=== PATIENT | female | born 1945 | race Caucasian/White ===

== ENCOUNTER 2021-09-25 19:14 | Inpatient (IN) | payer MEDICARE ==
[~2021-09-25] VITALS: Ht 160 cm; Wt 63.0 kg
--- NOTE | 2021-09-25 03:30 | NUR ---
patient received from ER Alert to self able to verbalize needs, patient denies pain, vitals WNL, skin intact, piv on left AC clean and intact. patient repeatedly requesting to go home and gets out of bed without assistance. Bed alarm activated patient.
[~2021-09-25 19:14] MED LIST: FLAX SEED OIL; TYLENOL SINUS
[2021-09-25 19:38] LABS: BASOPHILS % (AUTO) 0.4 % (0-1); EOSINOPHILS # (AUTO) 0.1 X10'3 (0-0.9); EOSINOPHILS % (AUTO) 0.8 % (0-6); HEMATOCRIT 41.8 % (35.0-45.0); HEMOGLOBIN 14.2 g/dl (12.0-16.0); LYMPHOCYTES # (AUTO) 2.1 X10'3 (1.1-4.8); LYMPHOCYTES % (AUTO) 17.7 % (21-51); MEAN CORPUSCULAR HEMOGLOBIN 29.8 PG (27.0-31.0); MEAN CORPUSCULAR VOLUME 87.7 FL (78-98); MEAN PLATELET VOLUME 7.2 FL (7.4-10.4); MONOCYTES # (AUTO) 0.7 X10'3 (0-0.9); MONOCYTES % (AUTO) 5.5 % (2-12); NEUTROPHILS % (AUTO) 75.6 % (42-75); PLATELET COUNT 264 X10'3 (140-440); RED BLOOD COUNT 4.76 X10'6 (4.20-5.60); RED CELL DISTRIBUTION WIDTH 13.4 % (11.5-14.5); WHITE BLOOD COUNT 11.9 X10'3 (4.5-11.0)
[2021-09-25] MEDS ORDERED: ENAL10TA19 PO (19:39)
[2021-09-25] MEDS ORDERED: METO25TA6 PO (19:39)
[2021-09-25] MEDS ORDERED: CLOP75TA34 PO (19:39)
[2021-09-25] MEDS ORDERED: SOD1.479 (19:39)
[2021-09-25] MEDS ORDERED: SIMV-42 PO (19:39)
[2021-09-25 19:51] LABS: ALANINE AMINOTRANSFERASE 18 U/L (12-78); ALBUMIN 3.8 G/DL (3.4-5.0); ALBUMIN/GLOBULIN RATIO 1.1 (1.1-1.5); ALKALINE PHOSPHATASE 109 IU/L (46-116); ANION GAP 8 (8-16); ASPARTATE AMINO TRANSFERASE 14 U/L (10-37); BILIRUBIN,TOTAL 0.3 MG/DL (0.1-1.0); BLOOD UREA NITROGEN 14 MG/DL (7-18); BUN/CREATININE RATIO 15.4 (6.6-38.0); CALCIUM 8.5 MG/DL (8.5-10.1); CHLORIDE 98 MMOL/L (99-107); CREATININE 0.91 MG/DL (0.40-0.90); GLUCOSE 119 MG/DL (70-104); SODIUM 131 MMOL/L (135-145); TOTAL CARBON DIOXIDE 25.4 MMOL/L (24-32); TOTAL PROTEIN 7.4 G/DL (6.4-8.2); eGFR 60 ML/MIN
[2021-09-25] MEDS ORDERED: iohexol 350MG/ML 100ml bottle IV ONE (20:03)
[2021-09-25 20:59] LABS: CLARITY,URINE CLOUDY (Clear); COLOR,URINE YELLOW (Yellow); GLUCOSE, URINE NEGATIVE (Neg); KETONES,URINE 15 mg/dl (Neg); LEUKOCYTE ESTERASE ,URINE SMALL (Neg); NITRITES, URINE POSITIVE (Neg); OCCULT BLOOD,URINE NEGATIVE (Neg); PH,URINE 5.5 (4.8-8.0); PROTEIN,URINE NEGATIVE (Neg); UROBILINOGEN,URINE 0.2 E.U/dL (0.2-1.0)
[2021-09-25 21:01] LABS: UA COLLECTION TYPE NON-SPECIFIED
[2021-09-25 21:15] LABS: SQUAMOUS EPITHELIAL CELL,UR FEW /LPF (FEW)
[2021-09-25] MEDS ORDERED: CefTRIAXone 2gm/D5W 50ml BAG 50 ML IV ONE (21:15)
[2021-09-25 21:18] LABS: BACTERIA,URINE 4+ /HPF (Neg)
[2021-09-25 21:19] LABS: HYALINE CASTS 0-3 /LPF (NEGATIVE); RBC,URINE 0-2 /HPF (0-2); WBC,URINE 30-50 /HPF (0-4)
[2021-09-25] MEDS ORDERED: potassium CL 10mEq/100ml bag 100 ML IV PRN (21:20)
[2021-09-25] MEDS ORDERED: acetaminophen 325mg tablet PO PRN (21:20)
[2021-09-25] MEDS ORDERED: magnesium Cl slow-release 64mg tablet PO PRN (21:20)
[2021-09-25] MEDS ORDERED: magnesium 4gm in 100ml NS 100 ML IV PRN (21:20)
[2021-09-25] MEDS ORDERED: potassium Cl 20 mEq SR tablet PO PRN ×2 (21:20)
[2021-09-25] MEDS ORDERED: magnesium 2GM in 50ml NS 50 ML IV PRN (21:20)
[2021-09-25 21:54] LABS: MAGNESIUM 1.8 MG/DL (1.5-2.4)
[2021-09-25] MEDS: CefTRIAXone/D5W-Rocephin 1gm 50 ML IV SCH (22:58)
[2021-09-26 02:07] LABS: BASOPHILS % (AUTO) 0.4 % (0-1); EOSINOPHILS % (AUTO) 0.2 % (0-6); HEMATOCRIT 40.6 % (35.0-45.0); HEMOGLOBIN 13.8 g/dl (12.0-16.0); LYMPHOCYTES # (AUTO) 1.6 X10'3 (1.1-4.8); LYMPHOCYTES % (AUTO) 16.9 % (21-51); MEAN CORPUSCULAR HEMOGLOBIN 29.7 PG (27.0-31.0); MEAN CORPUSCULAR HGB CONC 33.9 g/dL (33.0-36.5); MEAN CORPUSCULAR VOLUME 87.6 FL (78-98); MEAN PLATELET VOLUME 7.7 FL (7.4-10.4); MONOCYTES # (AUTO) 0.5 X10'3 (0-0.9); NEUTROPHILS # (AUTO) 7.1 X10'3 (1.8-7.7); NEUTROPHILS % (AUTO) 77.5 % (42-75); PLATELET COUNT 261 X10'3 (140-440); RED BLOOD COUNT 4.63 X10'6 (4.20-5.60); RED CELL DISTRIBUTION WIDTH 13.3 % (11.5-14.5); WHITE BLOOD COUNT 9.2 X10'3 (4.5-11.0)
[2021-09-26 02:18] LABS: ALBUMIN 3.6 G/DL (3.4-5.0); ANION GAP 8 (8-16); BLOOD UREA NITROGEN 11 MG/DL (7-18); BUN/CREATININE RATIO 14.3 (6.6-38.0); CALCIUM 8.6 MG/DL (8.5-10.1); CHLORIDE 98 MMOL/L (99-107); CREATININE 0.77 MG/DL (0.40-0.90); GLUCOSE 129 MG/DL (70-104); MAGNESIUM 1.9 MG/DL (1.5-2.4); SODIUM 131 MMOL/L (135-145); TOTAL CARBON DIOXIDE 25.1 MMOL/L (24-32); eGFR 73 ML/MIN
[2021-09-26 03:16] VITALS: BP 126/68
[2021-09-26 06:00] VITALS: BP 122/58
--- NOTE | 2021-09-26 06:48 | NUR ---
Problems reprioritized. Patient report given, questions answered & plan of care reviewed with hung.
[2021-09-26] MEDS: CefTRIAXone/D5W-Rocephin 1gm 50 ML IV SCH (08:00)
[2021-09-26] MEDS: K and/or MAG REPLACEMENT MC SCH ×2 (08:00→20:00)
[2021-09-26] MEDS ORDERED: PERFLUTREN PROTEIN-A MICROSPHR (Optison) 0.22 MG/ML 3ML VIAL IV PRN (08:50)
[2021-09-26] MEDS: atorvastatin 10mg tablet PO SCH (09:44)
[2021-09-26] MEDS: clopidogrel 75mg tablet PO SCH (09:44)
[2021-09-26] MEDS: lisinopril 10 MG tablet PO SCH (09:45)
[2021-09-26] MEDS: aspirin 325mg tablet PO SCH (09:45)
[2021-09-26] MEDS: metoprolol tartrate 25mg tablet PO SCH ×2 (09:45→20:36)
[2021-09-26 11:00] VITALS: BP 105/62
[2021-09-26 15:00] VITALS: BP 117/57
[2021-09-26 18:00] VITALS: BP 123/57
[2021-09-26 22:00] VITALS: BP 113/52
[2021-09-27 02:00] VITALS: BP 121/59
[2021-09-27 06:00] VITALS: BP 127/60
[2021-09-27 06:47] LABS: BASOPHILS # (AUTO) 0.1 X10'3 (0-0.2); BASOPHILS % (AUTO) 0.8 % (0-1); EOSINOPHILS # (AUTO) 0.1 X10'3 (0-0.9); EOSINOPHILS % (AUTO) 1.9 % (0-6); HEMATOCRIT 42.6 % (35.0-45.0); HEMOGLOBIN 14.5 g/dl (12.0-16.0); LYMPHOCYTES % (AUTO) 25.7 % (21-51); MEAN CORPUSCULAR HEMOGLOBIN 29.9 PG (27.0-31.0); MEAN PLATELET VOLUME 7.6 FL (7.4-10.4); MONOCYTES # (AUTO) 0.6 X10'3 (0-0.9); MONOCYTES % (AUTO) 7.6 % (2-12); NEUTROPHILS # (AUTO) 4.9 X10'3 (1.8-7.7); PLATELET COUNT 251 X10'3 (140-440); RED BLOOD COUNT 4.84 X10'6 (4.20-5.60); RED CELL DISTRIBUTION WIDTH 13.4 % (11.5-14.5); WHITE BLOOD COUNT 7.7 X10'3 (4.5-11.0)
[2021-09-27 07:39] LABS: ALBUMIN 3.7 G/DL (3.4-5.0); ANION GAP 7 (8-16); BLOOD UREA NITROGEN 13 MG/DL (7-18); BUN/CREATININE RATIO 15.3 (6.6-38.0); CHLORIDE 103 MMOL/L (99-107); CREATININE 0.85 MG/DL (0.40-0.90); GLUCOSE 93 MG/DL (70-104); MAGNESIUM 2.2 MG/DL (1.5-2.4); POTASSIUM 4.8 MMOL/L (3.5-5.1); SODIUM 137 MMOL/L (135-145); TOTAL CARBON DIOXIDE 27.5 MMOL/L (24-32); eGFR 65 ML/MIN
[2021-09-27] MEDS: atorvastatin 10mg tablet PO SCH (08:49)
[2021-09-27] MEDS: clopidogrel 75mg tablet PO SCH (08:50)
[2021-09-27] MEDS: metoprolol tartrate 25mg tablet PO SCH ×2 (08:50→09:05)
[2021-09-27] MEDS: aspirin 325mg tablet PO SCH (08:51)
[2021-09-27] MEDS: lisinopril 10 MG tablet PO SCH (08:51)
[2021-09-27] MEDS: CefTRIAXone/D5W-Rocephin 1gm 50 ML IV SCH (08:56)
[2021-09-27] MEDS: K and/or MAG REPLACEMENT MC SCH (08:57)
[2021-09-27 09:05] VITALS: BP_SYST 127
[2021-09-27] MEDS ORDERED: CEFD300C3 PO (10:31)
== END 2021-09-27 13:20 | disposition home or self-care (01) | DRG 689 ==
LOC: ER 22:00 → ED HOLD 22:01 → PCU 3S 22:01 → UNDOADMIN 22:01 → ED HOLD 09-26 02:47 → PCU 3S 09-26 02:47
PROVIDERS: ADMIT Internal Medicine; ATTEND Family Medicine
PROC: B3251ZZ Computerized Tomography (CT Scan) of Bilateral Common Carotid Arteries using Low Osmolar Contrast (ICD-10-PCS; principal; 2021-09-25)
PROC: B32G1ZZ Computerized Tomography (CT Scan) of Bilateral Vertebral Arteries using Low Osmolar Contrast (ICD-10-PCS; 2021-09-25)
PROC: B32R1ZZ Computerized Tomography (CT Scan) of Intracranial Arteries using Low Osmolar Contrast (ICD-10-PCS; 2021-09-25)
PROC: B3281ZZ Computerized Tomography (CT Scan) of Bilateral Internal Carotid Arteries using Low Osmolar Contrast (ICD-10-PCS; 2021-09-25)
DX: N39.0 Urinary tract infection, site not specified (principal); G93.41 Metabolic encephalopathy; N17.0 Acute kidney failure with tubular necrosis; E87.1 Hypo-osmolality and hyponatremia; Z20.822 Contact with and (suspected) exposure to COVID-19; B96.20 Unspecified Escherichia coli [E. coli] as the cause of diseases classified elsewhere; E78.5 Hyperlipidemia, unspecified; F17.210 Nicotine dependence, cigarettes, uncomplicated; I10 Essential (primary) hypertension; Z79.02 Long term (current) use of antithrombotics/antiplatelets
CPT/HCPCS: 36415; 70450; 70496; 70498; 70551; 71045; 80048; 80053; 81001; 83735; 85025; 85610; 86885; 86900; 86901; 87077; 87081; 87088; 87186; 87635; 92508; 92616; 93005; 93306; 97116; 97161; 99291; C9803; G0378; J0696; Q9967

== ENCOUNTER 2024-05-16 14:18 | Inpatient (IN) | payer MEDICARE ==
[~2024-05-16] VITALS: Ht 157.5 cm; Wt 46.7 kg
[~2024-05-16 14:18] MED LIST changes: +CLOP75TA34 PO; +ENAL-78 PO; -FLAX SEED OIL; +METO25TA6 PO; +SIMV-42 PO; -TYLENOL SINUS
[2024-05-16 15:18] LABS: BASOPHILS # (AUTO) 0.1 X10'3 (0-0.2); EOSINOPHILS # (AUTO) 0.3 X10'3 (0-0.9); MEAN PLATELET VOLUME 6.7 FL (7.4-10.4); RED CELL DISTRIBUTION WIDTH 18.9 % (11.5-14.5)
[2024-05-16 15:19] LABS: BASOPHILS % (AUTO) 0.6 % (0-1); EOSINOPHILS % (AUTO) 2.1 % (0-6); LYMPHOCYTES # (AUTO) 2.3 X10'3 (1.1-4.8); LYMPHOCYTES % (AUTO) 16.8 % (21-51); MEAN CORPUSCULAR HEMOGLOBIN 17.4 PG (27.0-31.0); MEAN CORPUSCULAR HGB CONC 29.3 g/dL (33.0-36.5); MEAN CORPUSCULAR VOLUME 59.5 FL (78-98); MONOCYTES # (AUTO) 1.2 X10'3 (0-0.9); MONOCYTES % (AUTO) 8.5 % (2-12); NEUTROPHILS # (AUTO) 9.9 X10'3 (1.8-7.7); PLATELET COUNT 696 X10'3 (140-440); RED BLOOD COUNT 3.46 X10'6 (4.20-5.60); WHITE BLOOD COUNT 13.7 X10'3 (4.5-11.0)
[2024-05-16 15:22] LABS: HEMATOCRIT 20.6 % (35.0-45.0)
[2024-05-16 15:26] LABS: APTT 25 SECONDS (22-32); INR 1.1 INR; PROTHROMBIN TIME 11.2 SECONDS (9.0-12.0)
[2024-05-16 15:27] LABS: ALBUMIN 2.8 G/DL (3.4-5.0); ALBUMIN/GLOBULIN RATIO 0.6 (1.1-1.5); ALKALINE PHOSPHATASE 76 IU/L (46-116); ANION GAP 9 (8-16); ASPARTATE AMINO TRANSFERASE 7 U/L (10-37); BILIRUBIN,TOTAL 0.3 MG/DL (0.1-1.0); BLOOD UREA NITROGEN 28 MG/DL (7-18); BUN/CREATININE RATIO 21.7 (10.0-20.0); CALCIUM 9.4 MG/DL (8.5-10.1); CHLORIDE 95 MMOL/L (99-107); CREATININE 1.29 MG/DL (0.40-0.90); GLUCOSE 118 MG/DL (70-104); POTASSIUM 4.3 MMOL/L (3.5-5.1); SODIUM 131 MMOL/L (135-145); TOTAL PROTEIN 7.7 G/DL (6.4-8.2); eCRCL 26 ML/MIN; eGFR 40 ML/MIN
[2024-05-16 15:34] LABS: PRO BRAIN NATRIURETIC PEPTIDE 744 PG/ML (0-450)
[2024-05-16 15:37] LABS: ACANTHOCYTES FEW; ALANINE AMINOTRANSFERASE 6 U/L (12-78); ANISOCYTOSIS 2+; ELLIPTOCYTES FEW; HYPOCHROMASIA 2+; MICROCYTOSIS 3+; PLATELET ESTIMATE INCREASED; TEAR DROP CELLS FEW
[2024-05-16 15:38] LABS: POLYCHROMASIA FEW; STOMATOCYTES FEW
[2024-05-16] MEDS: normal saline 1000ml 1,000 ML IV ONE (17:02)
[2024-05-16] MEDS: pantoprazole 40 MG vial IV ONE (17:05)
[2024-05-16 17:08] VITALS: BP 109/57; PULSE 75; RESP 15; TEMP 98.6
[2024-05-16 17:29] VITALS: BP 111/53; PULSE 79; RESP 16; TEMP 98.6
[2024-05-16 18:00] VITALS: BP 112/45; PULSE 84; RESP 16; TEMP 98.7
[2024-05-16] MEDS ORDERED: potassium Cl 20 mEq SR tablet PO PRN (18:10)
[2024-05-16] MEDS ORDERED: magnesium hydroxide 30ml (MOM) UD suspension PO PRN (18:10)
[2024-05-16] MEDS ORDERED: ondansetron/PF 4mg/2ml inj IV PRN (18:10)
[2024-05-16] MEDS ORDERED: mag hydrox/Alum hydrox/simeth 30ml oral suspension PO PRN (18:10)
[2024-05-16 18:46] LABS: FERRITIN 14 NG/ML (8-252)
[2024-05-16 18:55] LABS: HEMOGLOBIN A1C 5.5 % (4.5-6.2)
[2024-05-16 19:38] VITALS: BP 127/60; PULSE 77; RESP 16; TEMP 98.7
[2024-05-16] MEDS ORDERED: pantoprazole 40 MG vial IV SCH (20:00)
[2024-05-16 20:15] VITALS: BP 122/66; PULSE 87; RESP 16; TEMP 98; O2SAT 98
[2024-05-16] MEDS: normal saline 1000ml 1,000 ML IV SCH (20:27)
[2024-05-16] MEDS ORDERED: ASPI-1265 PO ×2 (21:25→21:32)
[2024-05-16 22:00] VITALS: BP 146/86; PULSE 91; RESP 14; TEMP 97.3; O2SAT 96
[2024-05-16 22:59] LABS: HEMATOCRIT 23.9 % (35.0-45.0); HEMOGLOBIN 7.4 g/dl (12.0-16.0); MEAN CORPUSCULAR HEMOGLOBIN 20.5 PG (27.0-31.0); MEAN CORPUSCULAR HGB CONC 30.9 g/dL (33.0-36.5); MEAN CORPUSCULAR VOLUME 66.3 FL (78-98); MEAN PLATELET VOLUME 6.7 FL (7.4-10.4); PLATELET COUNT 493 X10'3 (140-440); RED BLOOD COUNT 3.61 X10'6 (4.20-5.60); RED CELL DISTRIBUTION WIDTH 26.8 % (11.5-14.5); WHITE BLOOD COUNT 11.4 X10'3 (4.5-11.0)
[2024-05-16 23:17] LABS: % IRON SATURATION 4 % (11-46); IRON 12 UG/DL (49-151); TOTAL IRON BINDING CAPACITY 328 UG/DL (259-388)
[2024-05-17] VITALS (7 sets, daily range): BP systolic 105–123; BP diastolic 44–62; PULSE 86–99; RESP 16–26; TEMP 97.5–98.6; O2SAT 94–96
[2024-05-17 06:03] LABS: BASOPHILS # (AUTO) 0.1 X10'3 (0-0.2); BASOPHILS % (AUTO) 0.6 % (0-1); EOSINOPHILS # (AUTO) 0.2 X10'3 (0-0.9); EOSINOPHILS % (AUTO) 2.6 % (0-6); HEMATOCRIT 23.3 % (35.0-45.0); HEMOGLOBIN 7.3 g/dl (12.0-16.0); LYMPHOCYTES # (AUTO) 1.7 X10'3 (1.1-4.8); LYMPHOCYTES % (AUTO) 18.1 % (21-51); MEAN CORPUSCULAR HEMOGLOBIN 20.9 PG (27.0-31.0); MEAN CORPUSCULAR HGB CONC 31.3 g/dL (33.0-36.5); MEAN CORPUSCULAR VOLUME 66.7 FL (78-98); MEAN PLATELET VOLUME 6.7 FL (7.4-10.4); MONOCYTES # (AUTO) 0.7 X10'3 (0-0.9); MONOCYTES % (AUTO) 7.7 % (2-12); NEUTROPHILS # (AUTO) 6.9 X10'3 (1.8-7.7); PLATELET COUNT 508 X10'3 (140-440); RED CELL DISTRIBUTION WIDTH 25.8 % (11.5-14.5); WHITE BLOOD COUNT 9.7 X10'3 (4.5-11.0)
[2024-05-17 06:28] LABS: ALANINE AMINOTRANSFERASE 6 U/L (12-78); ALBUMIN 2.2 G/DL (3.4-5.0); ALBUMIN/GLOBULIN RATIO 0.5 (1.1-1.5); ALKALINE PHOSPHATASE 61 IU/L (46-116); ANION GAP 7 (8-16); ASPARTATE AMINO TRANSFERASE 9 U/L (10-37); BILIRUBIN,TOTAL 0.4 MG/DL (0.1-1.0); BLOOD UREA NITROGEN 19 MG/DL (7-18); BUN/CREATININE RATIO 23.5 (10.0-20.0); CALCIUM 8.1 MG/DL (8.5-10.1); CHLORIDE 101 MMOL/L (99-107); CHOL/HDL RATIO 1.7 (0.00-4.99); CHOLESTEROL 89 MG/DL (0-200); CREATININE 0.81 MG/DL (0.40-0.90); GLUCOSE 90 MG/DL (70-104); HDL CHOLESTEROL 52 MG/DL (35-60); LDL CHOLESTEROL 25 MG/DL (50-100); MAGNESIUM 1.5 MG/DL (1.5-2.4); PHOSPHORUS 3.3 MG/DL (2.3-4.5); SODIUM 130 MMOL/L (135-145); TOTAL PROTEIN 6.4 G/DL (6.4-8.2); TRIGLYCERIDES 81 MG/DL (20-135); eCRCL 41 ML/MIN; eGFR 68 ML/MIN
[2024-05-17] MEDS: pantoprazole 40 MG vial IV SCH (08:07)
[2024-05-17] MEDS: iron sucrose complex injection 500 MG in normal saline 250ml IV soln 250 ML IV ONE (08:08)
[2024-05-17 13:25] LABS: BILIRUBIN,URINE NEGATIVE (Neg); CLARITY,URINE CLOUDY (Clear); COLOR,URINE YELLOW (Yellow); GLUCOSE, URINE NEGATIVE (Neg); KETONES,URINE 15 mg/dl (Neg); LEUKOCYTE ESTERASE ,URINE MODERATE (Neg); NITRITES, URINE POSITIVE (Neg); OCCULT BLOOD,URINE MODERATE (Neg); PH,URINE 5.5 (4.8-8.0); PROTEIN,URINE NEGATIVE (Neg); UROBILINOGEN,URINE 0.2 E.U/dL (0.2-1.0)
[2024-05-17 13:31] LABS: UA COLLECTION TYPE NON-SPECIFIED
[2024-05-17 13:45] LABS: BACTERIA,URINE 3+ /HPF (Neg); RBC,URINE 0-2 /HPF (0-2); SQUAMOUS EPITHELIAL CELL,UR MODERATE /LPF (FEW); WBC,URINE TNTC /HPF (0-4)
[2024-05-17 14:31] LABS: HEMOGLOBIN 7.6 g/dl (12.0-16.0); MEAN PLATELET VOLUME 6.7 FL (7.4-10.4); PLATELET COUNT 515 X10'3 (140-440); RED BLOOD COUNT 3.74 X10'6 (4.20-5.60); RED CELL DISTRIBUTION WIDTH 26.2 % (11.5-14.5); WHITE BLOOD COUNT 10.6 X10'3 (4.5-11.0)
[2024-05-17 14:36] LABS: HEMATOCRIT 23.6 % (35.0-45.0); MEAN CORPUSCULAR HEMOGLOBIN 20.8 PG (27.0-31.0); MEAN CORPUSCULAR HGB CONC 32.2 g/dL (33.0-36.5); MEAN CORPUSCULAR VOLUME 64.5 FL (78-98)
[2024-05-17] MEDS: PEG 3350/Na sulf,bicarb,Cl/KCl oral sol 4 liter bottle PO ONE (16:20)
[2024-05-17] MEDS: CefTRIAXone/D5W-Rocephin 1gm 50 ML IV SCH (20:40)
[2024-05-17] MEDS: FLU VACC TS2024-25(6MOS UP)/PF 45 MCG/0.5 ML SYRINGE IMVAC ONE (21:03)
[2024-05-18] VITALS (12 sets, daily range): BP systolic 103–149; BP diastolic 44–64; PULSE 79–100; RESP 16–20; TEMP 96.3–98.8; O2SAT 95–99
[2024-05-18 05:35] LABS: BASOPHILS # (AUTO) 0.1 X10'3 (0-0.2); BASOPHILS % (AUTO) 0.6 % (0-1); EOSINOPHILS # (AUTO) 0.1 X10'3 (0-0.9); EOSINOPHILS % (AUTO) 1.5 % (0-6); LYMPHOCYTES # (AUTO) 1.4 X10'3 (1.1-4.8); LYMPHOCYTES % (AUTO) 16.7 % (21-51); MEAN CORPUSCULAR HEMOGLOBIN 20.9 PG (27.0-31.0); MEAN CORPUSCULAR HGB CONC 31.5 g/dL (33.0-36.5); MEAN CORPUSCULAR VOLUME 66.3 FL (78-98); MEAN PLATELET VOLUME 6.9 FL (7.4-10.4); MONOCYTES # (AUTO) 0.7 X10'3 (0-0.9); MONOCYTES % (AUTO) 8.1 % (2-12); NEUTROPHILS # (AUTO) 6.1 X10'3 (1.8-7.7); NEUTROPHILS % (AUTO) 73.1 % (42-75); PLATELET COUNT 442 X10'3 (140-440); RED BLOOD COUNT 3.22 X10'6 (4.20-5.60); RED CELL DISTRIBUTION WIDTH 26.4 % (11.5-14.5); WHITE BLOOD COUNT 8.4 X10'3 (4.5-11.0)
[2024-05-18 05:47] LABS: ALANINE AMINOTRANSFERASE 6 U/L (12-78); ALBUMIN 2.1 G/DL (3.4-5.0); ALBUMIN/GLOBULIN RATIO 0.6 (1.1-1.5); ALKALINE PHOSPHATASE 55 IU/L (46-116); ANION GAP 8 (8-16); ASPARTATE AMINO TRANSFERASE 8 U/L (10-37); BILIRUBIN,TOTAL 0.2 MG/DL (0.1-1.0); BLOOD UREA NITROGEN 11 MG/DL (7-18); BUN/CREATININE RATIO 16.2 (10.0-20.0); CALCIUM 7.6 MG/DL (8.5-10.1); CHLORIDE 101 MMOL/L (99-107); CREATININE 0.68 MG/DL (0.40-0.90); GLUCOSE 84 MG/DL (70-104); MAGNESIUM 1.4 MG/DL (1.5-2.4); PHOSPHORUS 2.4 MG/DL (2.3-4.5); POTASSIUM 3.5 MMOL/L (3.5-5.1); SODIUM 134 MMOL/L (135-145); TOTAL CARBON DIOXIDE 24.9 MMOL/L (24-32); TOTAL PROTEIN 5.9 G/DL (6.4-8.2); eCRCL 49 ML/MIN; eGFR 83 ML/MIN
[2024-05-18 05:49] LABS: HEMATOCRIT 21.4 % (35.0-45.0); HEMOGLOBIN 6.7 g/dl (12.0-16.0)
[2024-05-18] MEDS: simvastatin 20mg tablet PO SCH (07:57)
[2024-05-18] MEDS ORDERED: MIDAZolam 1 MG/ML 5ML VIAL ONE (13:21)
[2024-05-18] MEDS ORDERED: fentaNYL/PF 50MCG/1 ML 2ML syringe ONE (13:21)
[2024-05-18] MEDS ORDERED: LIDOcaine 2% Viscous 15ml cup ONE (13:21)
[2024-05-18] MEDS ORDERED: simethicone 40mg/0.6ml oral drops 30ml ONE (13:33)
[2024-05-18] MEDS: IOHEXOL 12MG/ML oral solution 500 ML BOTTLE PO ONE (18:15)
[2024-05-18 18:41] LABS: HEMATOCRIT 32.3 % (35.0-45.0); MEAN CORPUSCULAR HEMOGLOBIN 21.6 PG (27.0-31.0); MEAN CORPUSCULAR VOLUME 69.8 FL (78-98); MEAN PLATELET VOLUME 6.7 FL (7.4-10.4); PLATELET COUNT 457 X10'3 (140-440); RED BLOOD COUNT 4.63 X10'6 (4.20-5.60); RED CELL DISTRIBUTION WIDTH 28.5 % (11.5-14.5); WHITE BLOOD COUNT 12.9 X10'3 (4.5-11.0)
[2024-05-18] MEDS ORDERED: iohexol 300mg/ml 100ml inj. ONE (20:23)
[2024-05-19] VITALS (30 sets, daily range): BP systolic 90–136; BP diastolic 47–63; PULSE 69–100; RESP 14–20; TEMP 97.6–98.6; O2SAT 94–100
[2024-05-19 04:59] LABS: BASOPHILS % (AUTO) 0.2 % (0-1); EOSINOPHILS # (AUTO) 0.1 X10'3 (0-0.9); EOSINOPHILS % (AUTO) 1.2 % (0-6); HEMATOCRIT 27.2 % (35.0-45.0); HEMOGLOBIN 8.3 g/dl (12.0-16.0); LYMPHOCYTES # (AUTO) 1.8 X10'3 (1.1-4.8); LYMPHOCYTES % (AUTO) 15.5 % (21-51); MEAN CORPUSCULAR HEMOGLOBIN 21.8 PG (27.0-31.0); MEAN CORPUSCULAR HGB CONC 30.4 g/dL (33.0-36.5); MEAN CORPUSCULAR VOLUME 71.7 FL (78-98); MEAN PLATELET VOLUME 6.7 FL (7.4-10.4); MONOCYTES # (AUTO) 0.6 X10'3 (0-0.9); NEUTROPHILS % (AUTO) 78.1 % (42-75); PLATELET COUNT 406 X10'3 (140-440); RED CELL DISTRIBUTION WIDTH 27.6 % (11.5-14.5); WHITE BLOOD COUNT 11.6 X10'3 (4.5-11.0)
[2024-05-19 05:11] LABS: ANISOCYTOSIS 3+; MICROCYTOSIS 1+; PLATELET ESTIMATE NORMAL
[2024-05-19 05:14] LABS: ALBUMIN 1.9 G/DL (3.4-5.0); ALBUMIN/GLOBULIN RATIO 0.5 (1.1-1.5); ALKALINE PHOSPHATASE 53 IU/L (46-116); ANION GAP 11 (8-16); ASPARTATE AMINO TRANSFERASE 10 U/L (10-37); BILIRUBIN,TOTAL 0.4 MG/DL (0.1-1.0); BLOOD UREA NITROGEN 6 MG/DL (7-18); BUN/CREATININE RATIO 10.3 (10.0-20.0); CALCIUM 7.9 MG/DL (8.5-10.1); CHLORIDE 100 MMOL/L (99-107); CREATININE 0.58 MG/DL (0.40-0.90); GLUCOSE 65 MG/DL (70-104); MAGNESIUM 1.4 MG/DL (1.5-2.4); PHOSPHORUS 2.6 MG/DL (2.3-4.5); POTASSIUM 3.3 MMOL/L (3.5-5.1); SODIUM 130 MMOL/L (135-145); TOTAL CARBON DIOXIDE 19.4 MMOL/L (24-32); TOTAL PROTEIN 5.6 G/DL (6.4-8.2); eCRCL 57 ML/MIN; eGFR > 90 ML/MIN
[2024-05-19 05:15] LABS: BURR CELLS FEW; ELLIPTOCYTES FEW; HYPOCHROMASIA 1+
[2024-05-19 05:16] LABS: SCHISTOCYTES FEW
[2024-05-19 05:22] LABS: ALANINE AMINOTRANSFERASE < 6 U/L (12-78)
[2024-05-19 06:34] LABS: APTT 32 SECONDS (22-32)
[2024-05-19] MEDS: potassium Cl 20 mEq SR tablet PO PRN (07:11)
[2024-05-19] MEDS: magnesium Cl slow-release 64mg tablet PO PRN (07:11)
[2024-05-19 09:22] LABS: INR 1.2 INR; PROTHROMBIN TIME 12.5 SECONDS (9.0-12.0)
[2024-05-19] MEDS ORDERED: morphine 2 MG/ML inj. syringe IV PRN ×2 (12:20→17:10)
[2024-05-19] MEDS: potassium Cl 40MEQ/1/2NS 520ml 520 ML IV PRN (13:44)
[2024-05-19] MEDS: dextrose 50%-water 50ml dispensing syringe IV ONE (15:16)
[2024-05-19] MEDS ORDERED: sevoflurane 250ml liquid IH ONE (15:54)
[2024-05-19] MEDS ORDERED: propofol inj 20 ML IV ONE (15:55)
[2024-05-19] MEDS ORDERED: midazolam 1 mg/ML 2ml injection ONE (15:55)
[2024-05-19] MEDS ORDERED: fentaNYL /PF 50mcg/ml 5ml ampule ONE (15:55)
[2024-05-19] MEDS ORDERED: rocuronium 10mg/ml inj IV ONE (15:56)
[2024-05-19] MEDS ORDERED: ceFOXitin 1000 MG inj ONE ×2 (16:06)
[2024-05-19] MEDS ORDERED: morphine 4 MG/ML inj SYRINge IV PRN (17:10)
[2024-05-19] MEDS ORDERED: meperidine/PF 25mg/ml syringe IV PRN ×2 (17:10)
[2024-05-19] MEDS ORDERED: proCHLORperazine 10 MG/2 ml inj IV PRN (17:10)
[2024-05-19] MEDS ORDERED: ondansetron/PF 4mg/2ml inj IV PRN (17:10)
[2024-05-19] MEDS ORDERED: ringers solution, lacted 1,000 ML IV SCH (17:10)
[2024-05-19] MEDS ORDERED: acetaminophen 1,000mg/100ml IV 100 ML IV ONE (18:37)
[2024-05-19] MEDS ORDERED: sugammadex 200mg/2ml injection IV ONE (18:38)
[2024-05-19] MEDS ORDERED: ondansetron/PF 4mg/2ml inj ONE (18:38)
[2024-05-19] MEDS ORDERED: dexamethasone sod phosphate 4mg/ml inj. ONE (18:38)
[2024-05-19] MEDS: meperidine/PF 25mg/ml syringe IV PRN (19:05)
[2024-05-19 19:22] LABS: ISTAT ANION GAP 14 (8-12); ISTAT BUN 5 mg/dL (7-18); ISTAT CL 102 mmol/L (99-107); ISTAT CREATININE 0.5 mg/dL (0.6-1.1); ISTAT GLUCOSE 119 mg/dL (70-104); ISTAT HGB 10.9 g/dl (12.0-16.0); ISTAT Hct 32 %PCV (35-45); ISTAT IONIZED CALCIUM 1.12 mmol/L (1.03-1.32); ISTAT K 4.5 mmol/L (3.5-5.1); ISTAT NA 132 mmol/L (135-145); ISTAT TOTAL CO2 16 mmol/L (24-32); ISTAT eGFR > 90 ML/MIN
[2024-05-19] MEDS: magnesium sulf-water 2g/50mL 50 ML IV PRN (21:04)
[2024-05-19] MEDS: magnesium sulf-water 4G/100mL 100 ML IV PRN (23:53)
[2024-05-19] MEDS: dextrose 5%-lactated ringers 1,000 ML IV SCH (23:54)
[2024-05-20] VITALS (7 sets, daily range): BP systolic 109–122; BP diastolic 42–61; PULSE 86–94; RESP 16–22; TEMP 97–97.6; O2SAT 94–98
[2024-05-20 05:00] LABS: BASOPHILS % (AUTO) 0.1 % (0-1); EOSINOPHILS % (AUTO) 0 % (0-6); HEMATOCRIT 37.1 % (35.0-45.0); HEMOGLOBIN 11.4 g/dl (12.0-16.0); LYMPHOCYTES # (AUTO) 0.9 X10'3 (1.1-4.8); LYMPHOCYTES % (AUTO) 4.5 % (21-51); MEAN CORPUSCULAR HGB CONC 30.7 g/dL (33.0-36.5); MEAN CORPUSCULAR VOLUME 78.2 FL (78-98); MEAN PLATELET VOLUME 7.2 FL (7.4-10.4); MONOCYTES # (AUTO) 0.6 X10'3 (0-0.9); MONOCYTES % (AUTO) 3.1 % (2-12); NEUTROPHILS # (AUTO) 19.4 X10'3 (1.8-7.7); NEUTROPHILS % (AUTO) 92.3 % (42-75); PLATELET COUNT 454 X10'3 (140-440); RED BLOOD COUNT 4.75 X10'6 (4.20-5.60); RED CELL DISTRIBUTION WIDTH 29.8 % (11.5-14.5)
[2024-05-20 05:18] LABS: ALANINE AMINOTRANSFERASE 6 U/L (12-78); ALBUMIN 1.8 G/DL (3.4-5.0); ALBUMIN/GLOBULIN RATIO 0.5 (1.1-1.5); ALKALINE PHOSPHATASE 48 IU/L (46-116); ANION GAP 14 (8-16); ASPARTATE AMINO TRANSFERASE 28 U/L (10-37); BILIRUBIN,TOTAL 0.4 MG/DL (0.1-1.0); BLOOD UREA NITROGEN 7 MG/DL (7-18); BUN/CREATININE RATIO 10.9 (10.0-20.0); CHLORIDE 101 MMOL/L (99-107); CREATININE 0.64 MG/DL (0.40-0.90); GLUCOSE 149 MG/DL (70-104); MAGNESIUM 3.5 MG/DL (1.5-2.4); PHOSPHORUS 3.2 MG/DL (2.3-4.5); POTASSIUM 4.3 MMOL/L (3.5-5.1); SODIUM 131 MMOL/L (135-145); TOTAL CARBON DIOXIDE 15.8 MMOL/L (24-32); TOTAL PROTEIN 5.4 G/DL (6.4-8.2); eCRCL 52 ML/MIN; eGFR 89 ML/MIN
[2024-05-20] MEDS: HYDROmorphone inj. 0.5 MG/0.5 ML DISP.SYRIN IV PRN (05:47)
[2024-05-20 17:51] LABS: ALBUMIN 1.7 G/DL (3.4-5.0); ANION GAP 5 (8-16); BLOOD UREA NITROGEN 8 MG/DL (7-18); BUN/CREATININE RATIO 10.3 (10.0-20.0); CALCIUM 7.7 MG/DL (8.5-10.1); CHLORIDE 102 MMOL/L (99-107); CREATININE 0.78 MG/DL (0.40-0.90); GLUCOSE 162 MG/DL (70-104); SODIUM 132 MMOL/L (135-145); TOTAL CARBON DIOXIDE 25.4 MMOL/L (24-32); eCRCL 42 ML/MIN; eGFR 71 ML/MIN
[2024-05-21] VITALS (7 sets, daily range): BP systolic 126–146; BP diastolic 56–84; PULSE 83–104; RESP 12–20; TEMP 97.7–98.5; O2SAT 91–95
[2024-05-21 06:11] LABS: BASOPHILS % (AUTO) 0 % (0-1); EOSINOPHILS # (AUTO) 0.1 X10'3 (0-0.9); EOSINOPHILS % (AUTO) 1.1 % (0-6); HEMATOCRIT 29.7 % (35.0-45.0); HEMOGLOBIN 9.6 g/dl (12.0-16.0); LYMPHOCYTES # (AUTO) 1.1 X10'3 (1.1-4.8); LYMPHOCYTES % (AUTO) 9.8 % (21-51); MEAN CORPUSCULAR HEMOGLOBIN 24.5 PG (27.0-31.0); MEAN CORPUSCULAR HGB CONC 32.3 g/dL (33.0-36.5); MEAN CORPUSCULAR VOLUME 75.9 FL (78-98); MEAN PLATELET VOLUME 6.9 FL (7.4-10.4); MONOCYTES # (AUTO) 0.7 X10'3 (0-0.9); NEUTROPHILS # (AUTO) 9.6 X10'3 (1.8-7.7); NEUTROPHILS % (AUTO) 83.1 % (42-75); PLATELET COUNT 361 X10'3 (140-440); RED BLOOD COUNT 3.91 X10'6 (4.20-5.60); RED CELL DISTRIBUTION WIDTH 31.1 % (11.5-14.5); WHITE BLOOD COUNT 11.5 X10'3 (4.5-11.0)
[2024-05-21 06:35] LABS: ALANINE AMINOTRANSFERASE 7 U/L (12-78); ALBUMIN 1.5 G/DL (3.4-5.0); ALBUMIN/GLOBULIN RATIO 0.4 (1.1-1.5); ALKALINE PHOSPHATASE 52 IU/L (46-116); ANION GAP 6 (8-16); ASPARTATE AMINO TRANSFERASE 8 U/L (10-37); BILIRUBIN,TOTAL 0.2 MG/DL (0.1-1.0); BLOOD UREA NITROGEN 7 MG/DL (7-18); CALCIUM 7.4 MG/DL (8.5-10.1); CHLORIDE 102 MMOL/L (99-107); GLUCOSE 144 MG/DL (70-104); MAGNESIUM 1.8 MG/DL (1.5-2.4); PHOSPHORUS 1.9 MG/DL (2.3-4.5); POTASSIUM 3.8 MMOL/L (3.5-5.1); SODIUM 133 MMOL/L (135-145); TOTAL CARBON DIOXIDE 24.6 MMOL/L (24-32); TOTAL PROTEIN 4.9 G/DL (6.4-8.2); eCRCL 47 ML/MIN; eGFR 81 ML/MIN
[2024-05-21 06:36] LABS: ANISOCYTOSIS 3+; PLATELET ESTIMATE NORMAL
[2024-05-21 06:37] LABS: BURR CELLS FEW; ELLIPTOCYTES FEW; MICROCYTOSIS 1+; STOMATOCYTES FEW; TEAR DROP CELLS FEW
[2024-05-21] MEDS: heparin, porcine 5000 units/ml vial SQ SCH (20:00)
[2024-05-22 05:58] LABS: BASOPHILS % (AUTO) 0.1 % (0-1); EOSINOPHILS # (AUTO) 0.2 X10'3 (0-0.9); HEMATOCRIT 29.4 % (35.0-45.0); HEMOGLOBIN 9.8 g/dl (12.0-16.0); LYMPHOCYTES # (AUTO) 0.9 X10'3 (1.1-4.8); MEAN CORPUSCULAR HGB CONC 33.2 g/dL (33.0-36.5); MEAN CORPUSCULAR VOLUME 75.4 FL (78-98); MEAN PLATELET VOLUME 6.8 FL (7.4-10.4); MONOCYTES # (AUTO) 0.5 X10'3 (0-0.9); MONOCYTES % (AUTO) 5.2 % (2-12); NEUTROPHILS # (AUTO) 7.6 X10'3 (1.8-7.7); NEUTROPHILS % (AUTO) 82.7 % (42-75); PLATELET COUNT 334 X10'3 (140-440); RED CELL DISTRIBUTION WIDTH 30.4 % (11.5-14.5); WHITE BLOOD COUNT 9.2 X10'3 (4.5-11.0)
[2024-05-22 06:00] VITALS: BP 126/55; PULSE 92; RESP 16; TEMP 97.9; O2SAT 96
[2024-05-22 06:05] LABS: ALBUMIN 1.5 G/DL (3.4-5.0); ANION GAP 6 (8-16); BLOOD UREA NITROGEN 4 MG/DL (7-18); BUN/CREATININE RATIO 6.3 (10.0-20.0); CALCIUM 7.4 MG/DL (8.5-10.1); CHLORIDE 99 MMOL/L (99-107); CREATININE 0.64 MG/DL (0.40-0.90); GLUCOSE 112 MG/DL (70-104); POTASSIUM 3.5 MMOL/L (3.5-5.1); SODIUM 134 MMOL/L (135-145); TOTAL CARBON DIOXIDE 28.8 MMOL/L (24-32); eCRCL 52 ML/MIN; eGFR 89 ML/MIN
[2024-05-22 07:28] LABS: ANISOCYTOSIS 3+; MICROCYTOSIS 1+; PLATELET ESTIMATE NORMAL; POIKILOCYTOSIS FEW
[2024-05-22 08:00] VITALS: RESP 16; O2SAT 95
[2024-05-22 11:00] VITALS: BP 127/67; PULSE 68; RESP 18; TEMP 98.1; O2SAT 93
[2024-05-22 18:00] VITALS: BP 127/59; PULSE 81; RESP 16; TEMP 97.9; O2SAT 97
[2024-05-22 20:00] VITALS: RESP 18; O2SAT 95
[2024-05-22] MEDS: acetaminophen 325mg tablet PO PRN (20:32)
[2024-05-22 22:00] VITALS: BP 149/62; PULSE 83; RESP 16; TEMP 97.5; O2SAT 97
[2024-05-23] VITALS (7 sets, daily range): BP systolic 130–155; BP diastolic 59–69; PULSE 74–85; RESP 16–20; TEMP 96.9–98.4; O2SAT 96–98
[2024-05-23 05:56] LABS: BASOPHILS # (AUTO) 0.1 X10'3 (0-0.2); BASOPHILS % (AUTO) 0.5 % (0-1); EOSINOPHILS # (AUTO) 0.1 X10'3 (0-0.9); EOSINOPHILS % (AUTO) 1.5 % (0-6); HEMATOCRIT 29.4 % (35.0-45.0); HEMOGLOBIN 9.6 g/dl (12.0-16.0); LYMPHOCYTES # (AUTO) 1.3 X10'3 (1.1-4.8); MEAN CORPUSCULAR HEMOGLOBIN 24.4 PG (27.0-31.0); MEAN CORPUSCULAR HGB CONC 32.6 g/dL (33.0-36.5); MEAN CORPUSCULAR VOLUME 74.9 FL (78-98); MEAN PLATELET VOLUME 7.1 FL (7.4-10.4); MONOCYTES # (AUTO) 0.4 X10'3 (0-0.9); MONOCYTES % (AUTO) 4.5 % (2-12); NEUTROPHILS # (AUTO) 7.5 X10'3 (1.8-7.7); NEUTROPHILS % (AUTO) 79.5 % (42-75); PLATELET COUNT 340 X10'3 (140-440); RED BLOOD COUNT 3.92 X10'6 (4.20-5.60); RED CELL DISTRIBUTION WIDTH 30.7 % (11.5-14.5); WHITE BLOOD COUNT 9.4 X10'3 (4.5-11.0)
[2024-05-23 06:03] LABS: ALBUMIN 1.6 G/DL (3.4-5.0); ANION GAP 4 (8-16); BLOOD UREA NITROGEN 3 MG/DL (7-18); BUN/CREATININE RATIO 4.8 (10.0-20.0); CALCIUM 7.7 MG/DL (8.5-10.1); CHLORIDE 96 MMOL/L (99-107); CREATININE 0.63 MG/DL (0.40-0.90); GLUCOSE 92 MG/DL (70-104); POTASSIUM 3.5 MMOL/L (3.5-5.1); SODIUM 129 MMOL/L (135-145); TOTAL CARBON DIOXIDE 28.8 MMOL/L (24-32); eCRCL 53 ML/MIN; eGFR > 90 ML/MIN
[2024-05-23] MEDS: pantoprazole 40 MG vial IV SCH (07:36)
[2024-05-23] MEDS: FERROUS SULFATE 142 MG TABLET.ER (45mg elemental) PO SCH (07:58)
[2024-05-23] MEDS: lactose-reduced food (Ensure Enlive) - 237ml bottle PO SCH (13:19)
[2024-05-23] MEDS: HYDROcodone/acetaminophen 5mg/325mg tablet PO PRN (20:26)
[2024-05-24 06:39] LABS: BASOPHILS % (AUTO) 0.3 % (0-1); EOSINOPHILS # (AUTO) 0.2 X10'3 (0-0.9); EOSINOPHILS % (AUTO) 2.1 % (0-6); HEMATOCRIT 30.2 % (35.0-45.0); HEMOGLOBIN 9.9 g/dl (12.0-16.0); LYMPHOCYTES # (AUTO) 1.4 X10'3 (1.1-4.8); LYMPHOCYTES % (AUTO) 13.4 % (21-51); MEAN CORPUSCULAR HEMOGLOBIN 24.7 PG (27.0-31.0); MEAN CORPUSCULAR HGB CONC 32.7 g/dL (33.0-36.5); MEAN CORPUSCULAR VOLUME 75.4 FL (78-98); MEAN PLATELET VOLUME 7.4 FL (7.4-10.4); MONOCYTES # (AUTO) 0.6 X10'3 (0-0.9); MONOCYTES % (AUTO) 6.3 % (2-12); NEUTROPHILS % (AUTO) 77.9 % (42-75); PLATELET COUNT 369 X10'3 (140-440); RED BLOOD COUNT 4.01 X10'6 (4.20-5.60); RED CELL DISTRIBUTION WIDTH 30.9 % (11.5-14.5); WHITE BLOOD COUNT 10.2 X10'3 (4.5-11.0)
[2024-05-24 06:44] LABS: ALBUMIN 1.6 G/DL (3.4-5.0); ANION GAP 4 (8-16); BLOOD UREA NITROGEN 3 MG/DL (7-18); BUN/CREATININE RATIO 4.8 (10.0-20.0); CALCIUM 7.7 MG/DL (8.5-10.1); CHLORIDE 95 MMOL/L (99-107); CREATININE 0.63 MG/DL (0.40-0.90); GLUCOSE 100 MG/DL (70-104); POTASSIUM 3.4 MMOL/L (3.5-5.1); SODIUM 128 MMOL/L (135-145); TOTAL CARBON DIOXIDE 28.7 MMOL/L (24-32); eCRCL 53 ML/MIN; eGFR > 90 ML/MIN
[2024-05-24 07:09] VITALS: BP 154/69; PULSE 78; RESP 16; TEMP 97.1; O2SAT 97
[2024-05-24 17:03] VITALS: BP 155/70; PULSE 78; RESP 16; TEMP 98.6; O2SAT 96
[2024-05-24 18:00] VITALS: BP 155/70; PULSE 78; RESP 16; TEMP 98.6; O2SAT 96
[2024-05-24 20:00] VITALS: RESP 16; O2SAT 96
[2024-05-24 22:00] VITALS: BP 123/60; PULSE 80; RESP 14; TEMP 97.9; O2SAT 97
[2024-05-25] MEDS ORDERED: potassium Cl 20 mEq SR tablet PO PRN ×2 (02:45)
[2024-05-25 05:34] LABS: BASOPHILS % (AUTO) 0.4 % (0-1); EOSINOPHILS # (AUTO) 0.2 X10'3 (0-0.9); EOSINOPHILS % (AUTO) 2.5 % (0-6); HEMATOCRIT 30.6 % (35.0-45.0); LYMPHOCYTES # (AUTO) 1.6 X10'3 (1.1-4.8); MEAN CORPUSCULAR HEMOGLOBIN 24.8 PG (27.0-31.0); MEAN CORPUSCULAR HGB CONC 32.6 g/dL (33.0-36.5); MEAN CORPUSCULAR VOLUME 76.3 FL (78-98); MEAN PLATELET VOLUME 6.9 FL (7.4-10.4); MONOCYTES # (AUTO) 0.6 X10'3 (0-0.9); NEUTROPHILS # (AUTO) 7.3 X10'3 (1.8-7.7); NEUTROPHILS % (AUTO) 75.1 % (42-75); PLATELET COUNT 384 X10'3 (140-440); RED BLOOD COUNT 4.01 X10'6 (4.20-5.60); WHITE BLOOD COUNT 9.7 X10'3 (4.5-11.0)
[2024-05-25 05:55] LABS: ALBUMIN 1.8 G/DL (3.4-5.0); ANION GAP 5 (8-16); BLOOD UREA NITROGEN 2 MG/DL (7-18); BUN/CREATININE RATIO 3.1 (10.0-20.0); CALCIUM 7.9 MG/DL (8.5-10.1); CHLORIDE 95 MMOL/L (99-107); CREATININE 0.64 MG/DL (0.40-0.90); GLUCOSE 88 MG/DL (70-104); POTASSIUM 3.5 MMOL/L (3.5-5.1); SODIUM 128 MMOL/L (135-145); eCRCL 52 ML/MIN; eGFR 89 ML/MIN
[2024-05-25 06:00] VITALS: BP 153/62; PULSE 79; RESP 16; TEMP 96.9; O2SAT 97
[2024-05-25] MEDS: K and/or MAG REPLACEMENT MC SCH (08:00)
[2024-05-25 08:16] LABS: PRO BRAIN NATRIURETIC PEPTIDE 906 PG/ML (0-450)
[2024-05-25 09:00] VITALS: RESP 16; O2SAT 97
[2024-05-25 10:00] VITALS: BP 152/65; PULSE 86; RESP 20; TEMP 98.2; O2SAT 95
[2024-05-30 11:06] LABS: OCCULT BLOOD STOOL POSITIVE (Neg)
== END 2024-05-25 15:35 | DRG 853 ==
LOC: ER 14:19 → ED HOLD 18:15 → SUR 3N 19:53
PROVIDERS: ADMIT Internal Medicine; ATTEND Internal Medicine
PROC: 30233N1 Transfusion of Nonautologous Red Blood Cells into Peripheral Vein, Percutaneous Approach (ICD-10-PCS; 2024-05-16)
PROC: 0DBL8ZX Excision of Transverse Colon, Via Natural or Artificial Opening Endoscopic, Diagnostic (ICD-10-PCS; 2024-05-18)
PROC: 0DBN8ZX Excision of Sigmoid Colon, Via Natural or Artificial Opening Endoscopic, Diagnostic (ICD-10-PCS; 2024-05-18)
PROC: 0DB98ZX Excision of Duodenum, Via Natural or Artificial Opening Endoscopic, Diagnostic (ICD-10-PCS; 2024-05-18)
PROC: 0DB68ZX Excision of Stomach, Via Natural or Artificial Opening Endoscopic, Diagnostic (ICD-10-PCS; 2024-05-18)
PROC: 0DBN0ZZ Excision of Sigmoid Colon, Open Approach (ICD-10-PCS; 2024-05-19)
PROC: 0DBL0ZZ Excision of Transverse Colon, Open Approach (ICD-10-PCS; principal; 2024-05-19 15:54)
DX: A41.9 Sepsis, unspecified organism (principal); K57.31 Diverticulosis of large intestine without perforation or abscess with bleeding; N17.0 Acute kidney failure with tubular necrosis; N39.0 Urinary tract infection, site not specified; C18.7 Malignant neoplasm of sigmoid colon; C18.4 Malignant neoplasm of transverse colon; C18.3 Malignant neoplasm of hepatic flexure; I95.9 Hypotension, unspecified; I10 Essential (primary) hypertension; D50.8 Other iron deficiency anemias; Z66 Do not resuscitate; E78.5 Hyperlipidemia, unspecified; Z79.01 Long term (current) use of anticoagulants; I25.10 Atherosclerotic heart disease of native coronary artery without angina pectoris; Z79.899 Other long term (current) drug therapy; Z90.49 Acquired absence of other specified parts of digestive tract
CPT/HCPCS: 36415; 36430; 43235; 45380; 45381; 71045; 71260; 74177; 80047; 80048; 80053; 80061; 81001; 82272; 82728; 82948; 83036; 83540; 83550; 83605; 83735; 83880; 84100; 84484; 85008; 85025; 85027; 85610; 85730; 86885; 86900; 86901; 86920; 87077; 87081; 87088; 87186; 88305; 88309; 88341; 88342; 93005; 93306; 96361; 96374; 97116; 97161; 97164; 97530; 99152; 99153; 99291; A4615; A4618; A4620; A6253; A6258; A6407; A6449; A7000; C1758; G0378; J0131; J0694; J0696; J1100; J1171; J1644; J1756; J2175; J2250; J2405; J2470; J2704; J3010; J3475; J3480; J3490; J7030; J7040; J7050; J7120; J7121; P9016; Q9967